=== PATIENT | male | born 1960 | race Caucasian/White ===

== ENCOUNTER 2017-11-07 16:30 | Emergency (ER) | payer SELFPAY ==
--- NOTE | 2017-11-07 16:43 | ER Document Report ---
HPI - HPI Patient complains to provider of: Fell off the back of a truck Onset: This afternoon - 3 PM Quality of pain: Sharp, Throbbing Pain Level: 4 Context: 57-year-old male fell off the back of a pickup truck about 4-1/2 feet onto his low back at 3 PM today. Has numbness down his right leg to the bottom of his right foot. No history of back pain or radiculopathy. No saddle anesthesia. Associated Symptoms: None Exacerbated by: Movement Relieved by: Denies Similar symptoms previously: No Recently seen / treated by doctor: No - ROS ROS below otherwise negative: Yes Systems Reviewed and Negative: Yes All other systems reviewed and negative Past Medical History - General Information source: Patient - Social History Smoking Status: Current Every Day Smoker Frequency of alcohol use: None Drug Abuse: None Lives with: Spouse/Significant other Family History: Reviewed & Not Pertinent - Medical History Medical History: Negative Surgical Hx: Negative Vertical Provider Document - CONSTITUTIONAL Agree With Documented VS: Yes Exam Limitations: No Limitations - INFECTION CONTROL TRAVEL OUTSIDE OF THE [place] IN LAST 30 DAYS: No - HEENT HEENT: Normocephalic - NECK Neck: Supple - RESPIRATORY Respiratory: Breath Sounds Normal, No Respiratory Distress - CARDIOVASCULAR Cardiovascular: Regular Rate, Regular Rhythm - MUSCULOSKELETAL/EXTREMETIES Musculoskeletal/Extremeties: MAEW, FROM, Tender - lumbat spine with radiation into right low back and into right leg, right SI joint - NEURO Level of Consciousness: Awake, Alert Motor/Sensory: No Motor Deficit, No Sensory Deficit Deep Tendon Reflexes: 2+ - Bilateral ankle and patellar - DERM Integumentary: Warm, Dry, No Rash Course - Re-evaluation Re-evalutation: 11/07/17 17:54 X-rays show some spondylitic changes, no fracture. The patient is able to walk. I will treat with prednisone because he says he has allergic reaction to ibuprofen but does okay with prednisone, muscle relaxers, and pain medication. He will follow-up if it gets worse. - Vital Signs Vital signs: Temp Pulse Resp BP Pulse Ox 98.4 F 90 16 191/97 H 95 11/07/17 16:37 11/07/17 16:37 11/07/17 16:37 11/07/17 16:37 11/07/17 16:37 Discharge - Discharge Clinical Impression: Low back pain after fall Condition: Good Disposition: HOME, SELF-CARE Instructions: Arthritis ([facility]), Low Back Pain ([facility]) Additional Instructions: warm compress Flexeril muscle relaxer Prednisone to reduce the inflammation percocet for pain to er if worse referral to orthopedics if persists Prescriptions: Cyclobenzaprine HCl [Flexeril 10 Mg Tablet] 10 mg PO TIDP PRN #20 tablet PRN Reason: Oxycodone HCl/Acetaminophen [Percocet 5-325 mg Tablet] 1 - 2 tab PO ASDIR PRN # 15 tablet PRN Reason: Prednisone [Deltasone 10 mg Tablet] 10 mg PO ASDIR PRN #21 tablet PRN Reason: Referrals: SAMRA CANADA MD [ACTIVE STAFF] - Follow up as needed
[2017-11-07] MEDS ORDERED: ONDANSETRON 4 MG TAB.RAPDIS PO ONE (16:46)
[2017-11-07] MEDS ORDERED: OXYCODONE-ACETAMINOPHEN 5-325 MG TABLET PO ONE (16:46)
--- NOTE | 2017-11-07 17:16 | RADIOLOGY REPORT (SQ) ---
EXAM DESCRIPTION: L SPINE WHOLE COMPLETED DATE/TIME: 11/07/2017 5:05 pm REASON FOR STUDY: fall off back of truck COMPARISON: None. NUMBER OF VIEWS: Five views including obliques. TECHNIQUE: AP, lateral, oblique, and sacral radiographic images acquired of the lumbar spine. LIMITATIONS: None. FINDINGS: MINERALIZATION: Normal. SEGMENTATION: Normal. No transitional anatomy. ALIGNMENT: Levoconvex lateral curvature centered at the L2/3 level noting a clot like marginal osteop hytes, consistent with sequela of degenerative change. VERTEBRAE: Maintained height. No fracture or worrisome bone lesion. DISCS: Multilevel spondylotic change with loss of intervertebral disc height predominantly at the L3/ 4 and L4/5 levels. Large marginal osteophytes are seen at several levels. POSTERIOR ELEMENTS: Pedicles and facets are intact. No pars defect or posterior arch defects. HARDWARE: None in the spine. PARASPINAL SOFT TISSUES: Normal. PELVIS: Intact as visualized. No fractures or worrisome bone lesions. SI joints intact. OTHER: No other significant finding. IMPRESSION: Multilevel spondylotic change. No evidence of acute osseous injury. TECHNICAL DOCUMENTATION: JOB ID: [id number]- All Rights Reserved Reading location - IP/workstation name: [email or web address]
[2017-11-07] MEDS ORDERED: PREDNISONE 20 MG TABLET PO ONE ×2 (17:53→17:55)
[2017-11-07 18:15] VITALS: BP 192/94
== END 2017-11-07 18:14 | disposition home or self-care (01) ==
LOC: ER 16:30
DX: M54.5 Low back pain (principal); R20.0 Anesthesia of skin; W17.89XA Other fall from one level to another, initial encounter; Y99.0 Civilian activity done for income or pay; F17.200 Nicotine dependence, unspecified, uncomplicated; Z88.6 Allergy status to analgesic agent
CPT/HCPCS: 99283; 72110; S0119; J7512

== ENCOUNTER 2017-11-11 13:54 | Emergency (ER) | payer SELFPAY ==
[2017-11-11] MEDS ORDERED: DIAZEPAM 5 MG TABLET PO ONE (14:36)
--- NOTE | 2017-11-11 14:40 | ER Document Report ---
ED Medical Screen (RME) - General Chief Complaint: Low Back Pain Stated Complaint: FALL BACK PAIN Time Seen by Provider: 11/11/17 14:34 Notes: RME DISCLOSURE I have seen this patient as part of a Rapid Medical Evaluation and, if applicable, placed any initially appropriate orders. The patient will be seen and fully evaluated, including a full history and physical exam, by a provider ( in Main ED or Fast Track) when a room becomes available. 57-year-old male here after a fall down several steps. States he tripped on a board causing him to fall. Pain of the lower back radiating down the right leg. Denies hitting his head or loss of consciousness. Did take a BC powder for pain just after falling down 1.5 hours ago. Denies numbness tingling weakness. TRAVEL OUTSIDE OF THE [place] IN LAST 30 DAYS: No - Related Data Allergies/Adverse Reactions: codeine Allergy (Verified 11/11/17 13:55) ibuprofen [From Motrin] Adverse Reaction (Verified 11/11/17 13:55) ketorolac [From Toradol] Adverse Reaction (Verified 11/11/17 13:55) Home Medications: no home meds per pt. Past Medical History - Social History Chew tobacco use (# tins/day): No Frequency of alcohol use: None Drug Abuse: None Renal/ Medical History: Denies: Hx Peritoneal Dialysis Physical Exam - Vital signs Vitals: Temp Pulse Resp BP Pulse Ox 98.0 F 81 22 H 201/111 H 99 11/11/17 14:09 11/11/17 14:09 11/11/17 14:09 11/11/17 14:09 11/11/17 14:09 Course - Vital Signs Vital signs: Temp Pulse Resp BP Pulse Ox 98.0 F 81 22 H 197/104 H 99 11/11/17 14:09 11/11/17 14:09 11/11/17 14:09 11/11/17 14:12 11/11/17 14:09
--- NOTE | 2017-11-11 15:46 | RADIOLOGY REPORT (SQ) ---
EXAM DESCRIPTION: L SPINE WHOLE COMPLETED DATE/TIME: 11/11/2017 3:25 pm REASON FOR STUDY: s/p fall COMPARISON: 11/07/2017 NUMBER OF VIEWS: Five views including obliques. TECHNIQUE: AP, lateral, oblique, and sacral radiographic images acquired of the lumbar spine. LIMITATIONS: None. FINDINGS: MINERALIZATION: Normal. SEGMENTATION: Normal. No transitional anatomy. ALIGNMENT: Normal. VERTEBRAE: Maintained height. No fracture or worrisome bone lesion. DISCS: Multilevel disc space narrowing with osteophytes. POSTERIOR ELEMENTS: Pedicles and facets are intact. No pars defect or posterior arch defects. Facet arthropathy is present. HARDWARE: None in the spine. PARASPINAL SOFT TISSUES: Normal. PELVIS: Intact as visualized. No fractures or worrisome bone lesions. SI joints intact. OTHER: No other significant finding. IMPRESSION: No evidence of acute osseous injury. Multilevel spondylotic change. TECHNICAL DOCUMENTATION: JOB ID: [id number] [employer]- All Rights Reserved Reading location - IP/workstation name: [email or web address]
--- NOTE | 2017-11-11 15:47 | RADIOLOGY REPORT (SQ) ---
EXAM DESCRIPTION: PELVIS AP COMPLETED DATE/TIME: 11/11/2017 3:25 pm REASON FOR STUDY: s/p fall COMPARISON: None. NUMBER OF VIEWS: One view TECHNIQUE: AP Pelvis LIMITATIONS: None. FINDINGS: MINERALIZATION: Normal. HIPS: No acute fracture or dislocation. No worrisome bone lesions. PELVIS AND SACRUM: No acute fracture or dislocation. No worrisome bone lesions. PUBIS AND ISCHIUM: No acute fracture. LOWER LUMBAR SPINE: Spondylotic change. SOFT TISSUES: No findings. OTHER: No other significant finding. IMPRESSION: NEGATIVE STUDY OF THE PELVIS. TECHNICAL DOCUMENTATION: JOB ID: [id number] [employer]- All Rights Reserved Reading location - IP/workstation name: [email or web address]
--- NOTE | 2017-11-11 15:47 | RADIOLOGY REPORT (SQ) ---
EXAM DESCRIPTION: SACRUM AND COCCYX COMPLETED DATE/TIME: 11/11/2017 3:25 pm REASON FOR STUDY: s/p fall COMPARISON: None. NUMBER OF VIEWS: Three views. TECHNIQUE: AP, lateral, and tilt views of the sacrum and coccyx. LIMITATIONS: None. FINDINGS: MINERALIZATION: Normal. BONES: No acute fracture or dislocation. No worrisome bone lesions. SOFT TISSUES: No soft tissue swelling. No foreign body. OTHER: No other significant finding. IMPRESSION: NEGATIVE STUDY OF THE SACRUM AND COCCYX. TECHNICAL DOCUMENTATION: JOB ID: [id number] [employer]- All Rights Reserved Reading location - IP/workstation name: [email or web address]
[2017-11-11] MEDS ORDERED: OXYCODONE-ACETAMINOPHEN 5-325 MG TABLET PO ONE (16:14)
--- NOTE | 2017-11-11 17:38 | ER Document Report ---
ED General - General Chief Complaint: Low Back Pain Stated Complaint: FALL BACK PAIN Time Seen by Provider: 11/11/17 14:34 Mode of Arrival: Ambulatory Information source: Patient Notes: This is a 57-year-old man with low back pain who was coming down the stairs and slipped on a nail and hit his buttocks on the steps exacerbating his pain. Patient presents to the emergency room with lumbar pain radiating down his right leg. TRAVEL OUTSIDE OF THE [place] IN LAST 30 DAYS: No - HPI Onset: Just prior to arrival Onset/Duration: Sudden Quality of pain: Dull Severity: Moderate Pain Level: 3 Associated symptoms: denies: Chest pain, Fever, Shortness of breath Exacerbated by: Movement Relieved by: Remaining still Similar symptoms previously: Yes Recently seen / treated by doctor: Yes - Related Data Allergies/Adverse Reactions: codeine Allergy (Verified 11/11/17 13:55) ibuprofen [From Motrin] Adverse Reaction (Verified 11/11/17 13:55) ketorolac [From Toradol] Adverse Reaction (Verified 11/11/17 13:55) Home Medications: no home meds per pt. Past Medical History - General Information source: Patient - Social History Smoking Status: Current Every Day Smoker Cigarette use (# per day): Yes - 1 pack per day Chew tobacco use (# tins/day): No Frequency of alcohol use: None Drug Abuse: None Lives with: Spouse/Significant other Family History: Reviewed & Not Pertinent Patient has suicidal ideation: No Patient has homicidal ideation: No - Past Medical History Cardiac Medical History: Reports: Hx Hypertension Renal/ Medical History: Denies: Hx Peritoneal Dialysis Surgical Hx: Negative Review of Systems - Review of Systems Constitutional: denies: Chills, Fever EENT: No symptoms reported Cardiovascular: No symptoms reported Respiratory: No symptoms reported Gastrointestinal: No symptoms reported Genitourinary: No symptoms reported Male Genitourinary: No symptoms reported Musculoskeletal: See HPI Skin: No symptoms reported Hematologic/Lymphatic: No symptoms reported Neurological/Psychological: No symptoms reported Physical Exam - Vital signs Vitals: Temp Pulse Resp BP Pulse Ox 98.0 F 81 22 H 201/111 H 99 11/11/17 14:09 11/11/17 14:09 11/11/17 14:09 11/11/17 14:09 11/11/17 14:09 Notes: Physical exam: GENERAL: The 7-year-old man, alert and oriented 3, no acute distress HEAD: Atraumatic, normocephalic. EYES: Pupils equal round and reactive to light, extraocular movements intact, sclera anicteric, conjunctiva are normal. ENT: TMs normal, nares patent, oropharynx clear without exudates. Moist mucous membranes. NECK: Normal range of motion, supple without obvious mass or JVD. LUNGS: Breath sounds clear to auscultation bilaterally and equal. No wheezes rales or rhonchi. HEART: Regular rate and rhythm without murmurs, rubs or gallops. ABDOMEN: Soft, normoactive bowel sounds. No tenderness to palpation. No guarding, no rebound. No masses appreciated. Back: Thoracic spine nontender, positive tenderness in the lumbar spine. There is no obvious crepitus. EXTREMITIES: Normal range of motion, no pitting or edema. No clubbing or cyanosis. NEUROLOGICAL: Cranial nerves II through XII grossly intact. Normal speech, moving all extremities. Noted to the lower extremities is good. The patient does have positive straight leg raising at 30 on the right. Distal pulses are 2+. He does have good sensation to the lower extremity. PSYCH: Normal mood, normal affect. SKIN: Warm, Dry, normal turgor, no rashes or lesions noted. Course - Re-evaluation Re-evalutation: Patient refusing MRI. Patient refusing blood work 11/11/17 17:34 I have had a long conversation with the patient. I think Mr. Morataya may have some disc disease and I recommended getting an MRI. I offered to arrange for that study today but the patient is adamant not to have the MRI because he is worried about cost. He does have an appointment with a back surgeon on Thursday. Additionally, his blood pressure is quite elevated and I wanted to get some blood work to evaluate his baseline BUN and creatinine. However, for the same reason as above, he does not want any blood work. While I think some of the blood pressure can be due to pain, I think it is clear he has high blood pressure and requires treatment. I will start him on a blood pressure medicine as well. I will refer him to a [facility]. 11/11/17 18:57 - Vital Signs Vital signs: Temp Pulse Resp BP Pulse Ox 97.9 F 66 22 H 191/103 H 95 04/04/18 17:44 11/11/17 17:44 11/11/17 14:09 11/11/17 17:44 11/11/17 17:44 - Diagnostic Test Radiology reviewed: Image reviewed, Reports reviewed - X-rays of the spine and pelvis show no acute bony lesions Discharge - Discharge Clinical Impression: Sciatica right, Hypertension Condition: Stable Disposition: HOME, SELF-CARE Instructions: Low Back Pain ([facility]), Oral Narcotic Medication ([facility]), Sciatica ( [facility]) Additional Instructions: Thank you for choosing [facility] for your care. The examination and treatment you have received in the Emergency Department today has been rendered on an emergency basis only and is not intended to be a substitute for complete medical care. You should contact your doctor as it is important that she/he examine you for any new or remaining problems. If given a copy of any lab tests or radiology reports, please bring them with you when you see your physician. If your problem worsens or new symptoms appear and you are unable to arrange prompt follow-up care, return to the Emergency Department. Specific signs to look out for: Any loss of bowel or bladder function, numbness to the inner thighs or around the scrotum, weakness to the lower extremities, or any concerns or getting worse. Any other instructions: Take the pain medicine as prescribed. Take the Neurontin which is also for pain. Follow-up with your back surgeon on Thursday as planned. A copy of today's x- rays as well as x-ray reports with you when you go. Take the blood pressure medicine as prescribed. Continue with the steroids as previously prescribed. Alternate heat or ice packs to the lower back to see which helps. It is important to follow-up with a primary care doctor for the blood pressure: I gave the number of the [facility] which is a free clinic below. If you don't have insurance: follow-up at the [facility] which is a free clinic. [address], [place] [address] The pain medicine you're taking prescribed as a narcotic. There are several important things you should know about this medicine: 1. This medicine contains Tylenol: It is important that you do not take Tylenol (or acetaminophen) while on this medicine. Tylenol is metabolized by the liver and taking too much Tylenol (acetaminophen) can lay to liver damage and even liver failure. 2. Taking narcotics for too long can lead to physical and mental dependence. Take this medicine only if really needed and in the lowest quantity to achieve pain relief. 3. Do not drink alcohol while on this medicine. Alcohol interacts with narcotics and the combination can be dangerous. 4. Do not drive or operate machinery while on this medicine. 5. Narcotics do cause constipation, so drink plenty of fluids and daily stool softeners. Prescriptions: Gabapentin 100 mg PO Q8HP PRN #30 capsule PRN Reason: Amlodipine Besylate [Norvasc 5 mg Tablet] 5 mg PO DAILY #30 tablet Oxycodone HCl/Acetaminophen [Percocet 5-325 mg Tablet] 1 tab PO ASDIR PRN #25 tab PRN Reason:
[2017-11-11 17:44] VITALS: BP 191/103
== END 2017-11-11 18:04 | disposition home or self-care (01) ==
LOC: ER 13:54
DX: M54.31 Sciatica, right side (principal); I10 Essential (primary) hypertension; W10.9XXA Fall (on) (from) unspecified stairs and steps, initial encounter; F17.210 Nicotine dependence, cigarettes, uncomplicated; Z88.6 Allergy status to analgesic agent
CPT/HCPCS: 72110; 72170; 72220; 99283

== ENCOUNTER 2017-11-16 15:35 | Emergency (ER) | payer SELFPAY ==
--- NOTE | 2017-11-16 17:05 | ER Document Report ---
ED General - General Chief Complaint: Back Injury Stated Complaint: BACK INJURY Time Seen by Provider: 11/16/17 17:03 Mode of Arrival: Wheelchair Information source: Patient Notes: Patient is a 57-year-old male presents status post fall that occurred today around 130. He states he was working on a steel boat slipped in the rain and fell landing on his back. He states he has fallen 2 other times in the past 10 days and has been seen both times for the fall here. He states the pain in his back is progressively gotten worse with each fall and now is endorsing a 2 day history of bladder incontinence, right leg paresthesias, numbness and right foot and saddle paresthesias. He denies any bowel incontinence, unilateral weakness, fever, chills, neck pain/stiffness. He states that he saw last time and discussed an MRI but did not want to stay at that time. TRAVEL OUTSIDE OF THE [place] IN LAST 30 DAYS: No - Related Data Allergies/Adverse Reactions: codeine Allergy (Verified 11/16/17 15:42) ibuprofen [From Motrin] Adverse Reaction (Verified 11/16/17 15:42) ketorolac [From Toradol] Adverse Reaction (Verified 11/16/17 15:42) Past Medical History - General Information source: Patient - Social History Smoking Status: Current Every Day Smoker Family History: Reviewed & Not Pertinent - Past Medical History Cardiac Medical History: Reports: Hx Hypertension Renal/ Medical History: Denies: Hx Peritoneal Dialysis Review of Systems - Review of Systems Constitutional: See HPI EENT: No symptoms reported Cardiovascular: No symptoms reported Respiratory: No symptoms reported Gastrointestinal: No symptoms reported Genitourinary: No symptoms reported Male Genitourinary: No symptoms reported Musculoskeletal: See HPI Skin: No symptoms reported Hematologic/Lymphatic: No symptoms reported Neurological/Psychological: See HPI Physical Exam - Vital signs Vitals: Temp Pulse Resp BP Pulse Ox 98.1 F 73 16 163/106 H 99 11/16/17 16:08 11/16/17 16:08 11/16/17 16:08 11/16/17 16:08 11/16/17 16:08 - Notes Notes: PHYSICAL EXAM: CONSTITUTIONAL: Alert and oriented, well-appearing and in no acute distress. HENT: Normocephalic, atraumatic. Trachea midline. Uvula midline. Moist mucous membranes. EYES: Pupils equal round and reactive to light, EOM intact. Sclera anicteric, conjunctiva are normal. No entrapment. NECK: supple without lymphadenopathy. No midline tenderness or paraspinous muscle spasms. No step-offs or deformities. ROM intact. Negative Kernig's and negative Brudzinski's. HEART: Regular rate and rhythm without murmurs. LUNGS: CTAB and equal. No wheezes, rales or rhonchi. GI: Normactive bowel sounds. Abdomen is soft, nontender, non-distended. No organomegaly. no CVAT. No rebound or guarding. BACK: FROM to passive, active FROM limited 2/2 pain. Strength 4+/5 bilaterally in lower extremities. No vertebral point tenderness, step-offs, or deformities. No other bony tenderness, erythema, swelling or ecchymosis. No paraspinous muscle spasms. SLR negative b/l. DTRs 2+. TTP to right lumbar musculature and to inner right thigh. Sensation intact to touch EXTREMITIES: no bony tenderness, erythema, edema, ecchymosis or deformity. Normal range of motion, no pitting edema. No cyanosis. Cap Refill <3 seconds. NEURO: Cranial nerves grossly intact. Normal sensory/motor exams. Sensation intact to touch. DTR 2+. PSYCH: Normal mood, normal affect. SKIN: Warm and dry. Normal turgor. No rashes or lesions noted. Course - Re-evaluation Re-evalutation: 11/16/17 17:05 Patient seen and examined. Well-hydrated, well-appearing, vital signs are stable. He is hypertensive and has history of high blood pressure but is not on any medications. Suspect the elevation today is due to his acute pain. He has had 2 previous lumbar x-rays done since 11/07/2017 all which were normal. Because he is now reporting bladder incontinence, saddle paresthesias and radiating pain down his right leg, I feel that MRI is warranted. Given PO pain medication here. 11/16/17 19:30 Patient returned from MRI requesting additional pain medication. Reports swelling with codeine, but has had oxycodone without difficulty or reaction. Reviewed imaging and reports which show no central cord compression or stenosis , shows non-critical foraminal narrowing. Discussed results with patient. Will give pain medication/steroids/muscle relaxers. Advised that he will need outpatient referral to neurosurgery for further evaluation and management. I have consulted with the supervisory physician per [facility] guidelines who agrees with management and plan. At this time, will discharge with return precautions and follow-up recommendations. Verbal discharge instructions given at the bedside and opportunity for questions given. Medication warnings reviewed. Patient is in agreement with this plan and has verbalized understanding of return precautions and the need for primary care follow-up in the next 24-72 hours. - Vital Signs Vital signs: Temp Pulse Resp BP Pulse Ox 98.1 F 73 16 163/106 H 99 11/16/17 16:08 11/16/17 16:08 11/16/17 16:08 11/16/17 16:08 11/16/17 16:08 - Diagnostic Test Radiology reviewed: Image reviewed, Reports reviewed Discharge - Discharge Clinical Impression: Foraminal stenosis of lumbar region Fall, accidental Qualifiers: Encounter type: initial encounter Qualified Code(s): W19.XXXA - Unspecified fall, initial encounter Spondylosis Qualifiers: Spinal region: lumbar Spinal osteoarthritis complication: with radiculopathy Qualified Code(s): M47.26 - Other spondylosis with radiculopathy, lumbar region Condition: Stable Disposition: HOME, SELF-CARE Additional Instructions: Referral to Neurology: [facility] - [facility], Gastroenterology, Pulmonology, Podiatry, Rheumatology [address] [place] [id number] Appointment line: [phone] Prescription Refill Line: [phone] LOW BACK PAIN: Three out of every four people will have an episode of disabling back pain during their lifetime. Most commonly the pain is due to straining of the muscles and ligaments in the low back. Usual treatment includes: (1) Rest on a firm surface. Avoid lying on your stomach. (2) Ice pack the painful area. After a few days, gentle heat may be used intermittently to relax the area, or ice packs can be continued. (3) Medication may be needed -- muscle relaxers and antiinflammatory medicines are commonly used. (4) As the back improves, exercises are prescribed to strengthen the back and abdominal muscles. Your doctor will advise you on the proper care for your back at each stage in your recovery. You may be better in a few days -- or healing may take several weeks. If new symptoms of a "herniated disc" (radiation of pain, numbness, or tingling down the back of the leg or weakness in the leg) occur, you should be re-examined. Further testing may be necessary. ORAL NARCOTIC MEDICATION: You have been given a prescription for pain control. This medication is a narcotic. It's best taken with food, as nausea can result if taken on an empty stomach. Don't operate machinery or drive within six hours of taking this medication. Do not combine this medicine with alcohol, or with any medication which can cause sedation (such as cold tablets or sleeping pills) unless you get permission from the physician. Narcotics tend to cause constipation. If possible, drink plenty of fluids and eat a diet high in fiber and fruits. Please be aware that prescription narcotics also have the potential for abuse. People become addicted to these medications because of the general sense of wellbeing that they induce. This feeling along with a significant reduction in tension, anxiety, and aggression provides a stimulating seductive quality to these drugs. Once your pain is under control, we encourage you to discard your unused narcotics. MUSCLE RELAXERS: Muscle relaxing medications are usually prescribed for acute muscle spasm or injury to the neck and back. They are often combined with antiinflammatory pain medication for increased relief. You may stop the muscle relaxer when the pain and stiffness have improved. Start the medication again if spasms recur. Muscle relaxers may cause drowsiness, especially with the first dose. Do not operate machinery or drive while under the effects of the medication. Most muscle relaxers last up to 24 hours. Do not combine the medication with alcohol. ICE PACKS: Apply ice packs frequently against the painful area. Many different schedules are recommended, such as "20 minutes on, 20 minutes off" or "one hour ice, two hours rest." If you need to work, you may need to go longer between ice treatments. You should plan to have the area ice packed AT LEAST one fourth of the time. The ice should be applied over the wrap, tape, or splint, or over a layer of cloth -- not directly against the skin. Some ice bags have a built-in cloth and can be put directly on the skin. WARM PACKS: After approximately two days, apply gentle heat (such as a heating pad or hot water bottle) for about 20 to 30 minutes about every two hours -- at least four times daily. Warmth and elevation will help you make a more rapid recovery , and will ease the pain considerably. Do not use HOT heat, and never apply heat for longer than 30 minutes. The continuous heat can invisibly damage skin and muscles -- even when no burn is seen on the surface. Damaged muscles can make you MORE sore. FOLLOW-UP CARE: If you have been referred to a physician for follow-up care, call the physician s office for an appointment as you were instructed or within the next two days. If you experience worsening or a significant change in your symptoms, notify the physician immediately or return to the Emergency Department at any time for re-evaluation. Prescriptions: Oxycodone HCl/Acetaminophen [Percocet 5-325 mg Tablet] 1 tab PO Q6HP PRN #15 tablet PRN Reason: Cyclobenzaprine HCl [Flexeril 10 mg Tablet] 10 mg PO TIDP PRN #15 tab PRN Reason: Prednisone [Deltasone 10 mg Tablet] 10 mg PO ASDIR PRN #21 tablet PRN Reason: Forms: Elevated Blood Pressure Referrals: NEUROLOGY [Provider Group] - Follow up tomorrow Neurosurgery [Provider Group] - Follow up tomorrow
[2017-11-16] MEDS ORDERED: OXYCODONE HCL IR 5 MG TABLET PO ONE ×2 (17:21→19:13)
[2017-11-16] MEDS ORDERED: LORAZEPAM 0.5 MG TABLET PO ONE (17:42)
--- NOTE | 2017-11-16 19:17 | RADIOLOGY REPORT (SQ) ---
EXAM DESCRIPTION: MRI LUMBAR SPINE WITHOUT COMPLETED DATE/TIME: 11/16/2017 7:01 pm REASON FOR STUDY: low back pain, urinary incontinence, paresthesias COMPARISON: 11/11/2017 radiographs TECHNIQUE: Sagittal and Axial imaging includes T1, T2, STIR and gradient echo sequences. Coronal T2/ HASTE imaging. LIMITATIONS: Motion artifact, mild-moderate. FINDINGS: VISUALIZED UPPER ABDOMEN: Left kidney large relative to right. Possible partial duplicati on. SEGMENTATION: No transitional anatomy. The lowest well-developed disc space is labeled L5-S1. ALIGNMENT: Mild convex left scoliotic curve. VERTEBRAE: Intact. BONE MARROW: Minimal endplate marrow edema at L4-5 related to degenerative disc disease here. Mild S chmorl's nodes at several other levels, nonacute. Chronic appearing fatty endplate changes otherwise . DISC SIGNAL: Diminished signal and mildly diminished height throughout. POSTERIOR ELEMENTS: No abnormal signal. Mild degenerative overgrowth in the lower facets. No gross pars defect. HARDWARE: None in the spine. CORD AND CONUS: Normal in size and signal intensity. Conus at the appropriate level. SOFT TISSUES: No aortic aneurysm seen. No bulky retroperitoneal adenopathy or mass. No paraspinal mas s or fluid. L1-L2: Small right paracentral protrusion. No high-grade central or foraminal narrowing. L2-L3: Mild facet arthropathy without overt stenosis. L3-L4: Mild disc and facet disease without central stenosis or high-grade foraminal narrowing. L4-L5: Mild disc and facet disease with slight central narrowing. Suspect up to moderate left forami nal stenosis. L5-S1: Exuberant facet overgrowth without central stenosis detected. Bilateral foraminal narrowing i s grossly at least moderate. LOWER THORACIC: Incompletely imaged. No stenosis seen. SACRUM: Visualized upper sacrum intact. OTHER: No other significant findings. IMPRESSION: 1. No cord compression or significant central stenosis. Spondylosis with relatively non critical foraminal narrowing as outlined above. Limiting motion. TECHNICAL DOCUMENTATION: JOB ID: [id number]- All Rights Reserved Reading location - IP/workstation name: [email or web address]
[2017-11-16 19:50] VITALS: BP 138/99
== END 2017-11-16 19:50 | disposition home or self-care (01) ==
LOC: ER 15:35
DX: M54.9 Dorsalgia, unspecified (principal); W01.0XXA Fall on same level from slipping, tripping and stumbling without subsequent striking against object, initial encounter; Y93.89 Activity, other specified; Y92.814 Boat as the place of occurrence of the external cause; M48.061 Spinal stenosis, lumbar region without neurogenic claudication; M47.26 Other spondylosis with radiculopathy, lumbar region; R32 Unspecified urinary incontinence; I10 Essential (primary) hypertension; F17.200 Nicotine dependence, unspecified, uncomplicated; Z88.5 Allergy status to narcotic agent
CPT/HCPCS: 72148; 99284

== ENCOUNTER 2017-11-29 17:40 | Emergency (ER) | payer SELFPAY ==
[2017-11-29 18:07] VITALS: BP 161/93
[2017-11-29] MEDS ORDERED: CYCLOBENZAPRINE HCL 10 MG TABLET PO ONE (19:28)
[2017-11-29] MEDS ORDERED: ACETAMINOPHEN 325 MG TABLET PO ONE (19:28)
--- NOTE | 2017-11-29 19:33 | ER Document Report ---
ED Medical Screen (RME) - General Chief Complaint: Back Pain Stated Complaint: BACK INJURY Time Seen by Provider: 11/29/17 19:18 Notes: RME DISCLOSURE I have seen this patient as part of a Rapid Medical Evaluation and, if applicable, placed any initially appropriate orders. The patient will be seen and fully evaluated, including a full history and physical exam, by a provider ( in Main ED or Fast Track) when a room becomes available. 57-year-old male here with complaints of back pain that started prior to arrival after the patient fell off of a ladder at approximately 5 feet high. He states that he was cutting branches with a pole saw and then when he maneuvered the pole saw, he lost his balance and fell onto the grass. No loss of consciousness. Denies numbness tingling incontinence retention. This is now the patient's fourth fall in 1 month. He denies any other symptoms. TRAVEL OUTSIDE OF THE [place] IN LAST 30 DAYS: No - Related Data Allergies/Adverse Reactions: codeine Allergy (Verified 11/29/17 17:44) ibuprofen [From Motrin] Adverse Reaction (Verified 11/29/17 17:44) ketorolac [From Toradol] Adverse Reaction (Verified 11/29/17 17:44) Past Medical History - Social History Chew tobacco use (# tins/day): No Frequency of alcohol use: None Drug Abuse: None - Past Medical History Cardiac Medical History: Reports: Hx Hypertension Renal/ Medical History: Denies: Hx Peritoneal Dialysis Physical Exam - Vital signs Vitals: Temp Pulse Resp BP Pulse Ox 98.3 F 64 20 161/93 H 95 11/29/17 18:06 11/29/17 18:06 11/29/17 18:06 11/29/17 18:06 11/29/17 18:06 Course - Vital Signs Vital signs: Temp Pulse Resp BP Pulse Ox 98.3 F 64 20 161/93 H 95 11/29/17 18:06 11/29/17 18:06 11/29/17 18:06 11/29/17 18:06 11/29/17 18:06
--- NOTE | 2017-11-29 20:00 | ER Document Report ---
ED Neck/Back Problem - General Mode of Arrival: Ambulatory Information source: Patient TRAVEL OUTSIDE OF THE [place] IN LAST 30 DAYS: No - General Chief Complaint: Back Pain Stated Complaint: BACK INJURY Time Seen by Provider: 11/29/17 19:18 Notes: Patient is a 57 year old male that presents to the emergency department today with complaints of back pain. Patient states that he fell off of a 5 foot ladder when cutting down a tree limb. Patient states he landed on grass. Patient states the pain is on the right side of his back and posterior ribs as this is the side he landed on. Patient denies any saddle anesthesia or bowel or bladder incontinence. (MARLYS SHERMAN) - Related Data Allergies/Adverse Reactions: codeine Allergy (Verified 11/29/17 17:44) ibuprofen [From Motrin] Adverse Reaction (Verified 11/29/17 17:44) ketorolac [From Toradol] Adverse Reaction (Verified 11/29/17 17:44) Past Medical History - General Information source: Patient - Social History Smoking Status: Current Every Day Smoker Cigarette use (# per day): Yes Chew tobacco use (# tins/day): No Frequency of alcohol use: None Drug Abuse: None Lives with: Family Family History: Reviewed & Not Pertinent Patient has suicidal ideation: No Patient has homicidal ideation: No - Past Medical History Cardiac Medical History: Reports: Hx Hypertension Renal/ Medical History: Denies: Hx Peritoneal Dialysis Surgical Hx: Negative Review of Systems - Review of Systems Constitutional: No symptoms reported EENT: No symptoms reported Cardiovascular: No symptoms reported Respiratory: No symptoms reported Gastrointestinal: No symptoms reported Genitourinary: No symptoms reported Male Genitourinary: No symptoms reported Musculoskeletal: See HPI, Back pain Skin: No symptoms reported Hematologic/Lymphatic: No symptoms reported Neurological/Psychological: No symptoms reported -: Yes All other systems reviewed and negative Physical Exam - Vital signs Vitals: Temp Pulse Resp BP Pulse Ox 98.3 F 64 20 161/93 H 95 11/29/17 18:06 11/29/17 18:06 11/29/17 18:06 11/29/17 18:06 11/29/17 18:06 - Notes Notes: Physical Exam: General: Alert, appears well. HEENT: Normocephalic. Atraumatic. PERRL. Extraocular movements intact. Oropharynx clear. Neck: Supple. Non-tender. Respiratory: No respiratory distress. Clear and equal breath sounds bilaterally. Cardiovascular: Regular rate and rhythm. Abdominal: Normal Inspection. Non-tender. No distension. Normal Bowel Sounds. Back: Lower lumbar and mid thoracic tenderness with palpation. No deformity or step off. Extremities: Moves all four extremities. Upper extremities: Normal inspection. Normal ROM. Lower extremities: Normal inspection. No edema. Normal ROM. Neurological: Normal cognition. AAOx4. Normal speech. Psychological: Normal affect. Normal Mood. Skin: Warm. Dry. Normal color. (MARLYS SHERMAN) Course - Re-evaluation Re-evalutation: 11/29/17 21:00 Patient well-appearing able to get out of the gurney on his own and ambulate. No radiographic signs of fracture dislocation. Patient will be discharged with muscular skeletal pain from falling off ladder approximately 5 feet. Return precautions provided. Of note, patient did not hit his head he is not taking any blood thinners. (DAVIDA LANGLEY) - Vital Signs Vital signs: Temp Pulse Resp BP Pulse Ox 98.3 F 64 20 161/93 H 95 11/29/17 18:06 11/29/17 18:06 11/29/17 18:06 11/29/17 18:06 11/29/17 18:06 Discharge - Discharge Clinical Impression: Muscular skeletal pain Fall from ladder Qualifiers: Encounter type: initial encounter Qualified Code(s): W11.XXXA - Fall on and from ladder, initial encounter Condition: Good Disposition: HOME, SELF-CARE Instructions: Low Back Pain ([facility]), Muscle Strain ([facility]), Warm Packs ([facility]) Prescriptions: Cyclobenzaprine HCl [Flexeril 10 mg Tablet] 10 mg PO TID PRN #20 tablet PRN Reason: Scribe Attestation: 12/07/17 07:56 I personally performed the services described in the documentation, reviewed and edited the documentation which was dictated to the scribe in my presence, and it accurately records my words and actions. (DAVIDA LANGLEY) Scribe Documentation - Scribe Written by Scribe:: Daniel Tran, 11/29/2017 acting as scribe for :: Terry
[2017-11-29] MEDS ORDERED: OXYCODONE-ACETAMINOPHEN 5-325 MG TABLET PO ONE (20:07)
--- NOTE | 2017-11-29 20:33 | RADIOLOGY REPORT (SQ) ---
EXAM DESCRIPTION: L SPINE WHOLE COMPLETED DATE/TIME: 11/29/2017 8:07 pm REASON FOR STUDY: fall off ladder COMPARISON: None. NUMBER OF VIEWS: Five views including obliques. TECHNIQUE: AP, lateral, oblique, and sacral radiographic images acquired of the lumbar spine. LIMITATIONS: None. FINDINGS: MINERALIZATION: Normal. SEGMENTATION: Normal. No transitional anatomy. ALIGNMENT: Normal. VERTEBRAE: Maintained height. No fracture or worrisome bone lesion. DISCS: Multilevel disc space narrowing with osteophytes. POSTERIOR ELEMENTS: Pedicles and facets are intact. No pars defect or posterior arch defects. Facet arthropathy is present. HARDWARE: None in the spine. PARASPINAL SOFT TISSUES: Normal. PELVIS: Intact as visualized. No fractures or worrisome bone lesions. SI joints intact. OTHER: No other significant finding. IMPRESSION: SPONDYLOSIS WITHOUT BONE LESION OR FRACTURE. TECHNICAL DOCUMENTATION: JOB ID: [id number] [place]-72 2010 [employer]- All Rights Reserved Reading location - IP/workstation name: [email or web address]
--- NOTE | 2017-11-29 20:33 | RADIOLOGY REPORT (SQ) ---
EXAM DESCRIPTION: T SPINE AP/LAT COMPLETED DATE/TIME: 11/29/2017 8:07 pm REASON FOR STUDY: fall off ladder COMPARISON: None. NUMBER OF VIEWS: Two views. TECHNIQUE: AP and lateral radiographic images acquired of the thoracic spine. LIMITATIONS: None. FINDINGS: MINERALIZATION: Normal. ALIGNMENT: Normal. No scoliosis. VERTEBRAE: No fracture or bone lesion. Maintained height, normal segmentation. DISCS: Multilevel disc space narrowing with osteophytes. HARDWARE: None in the spine. MEDIASTINUM AND SOFT TISSUES: Normal heart size and aortic contour. No soft tissue abnormality. VISUALIZED LUNG SAENZ: Clear. OTHER: No other significant finding. IMPRESSION: SPONDYLOSIS WITHOUT BONE LESION OR FRACTURE. TECHNICAL DOCUMENTATION: JOB ID: [id number] [place]-72 2010 [employer]- All Rights Reserved Reading location - IP/workstation name: [email or web address]
--- NOTE | 2017-11-29 20:39 | RADIOLOGY REPORT (SQ) ---
EXAM DESCRIPTION: CHEST 2 VIEWS COMPLETED DATE/TIME: 11/29/2017 8:29 pm REASON FOR STUDY: R lateral chest pain, fall COMPARISON: None. EXAM PARAMETERS: NUMBER OF VIEWS: two views TECHNIQUE: Digital Frontal and Lateral radiographic views of the chest acquired. RADIATION DOSE: NA LIMITATIONS: none FINDINGS: LUNGS AND PLEURA: No opacities, masses or pneumothorax. No pleural effusion. MEDIASTINUM AND HILAR STRUCTURES: No masses or contour abnormalities. HEART AND VASCULAR STRUCTURES: Heart normal size. No evidence for failure. BONES: No acute findings. Old healed left rib fractures. HARDWARE: None in the chest. OTHER: No other significant finding. IMPRESSION: NO ACUTE RADIOGRAPHIC FINDING IN THE CHEST. TECHNICAL DOCUMENTATION: JOB ID: [id number] [place]-72 2010 [employer]- All Rights Reserved Reading location - IP/workstation name: [email or web address]
== END 2017-11-29 21:56 | disposition home or self-care (01) ==
LOC: ER 17:40
DX: M54.9 Dorsalgia, unspecified (principal); R07.81 Pleurodynia; W11.XXXA Fall on and from ladder, initial encounter; Y93.H9 Activity, other involving exterior property and land maintenance, building and construction; F17.210 Nicotine dependence, cigarettes, uncomplicated; I10 Essential (primary) hypertension; Z88.5 Allergy status to narcotic agent; Z88.6 Allergy status to analgesic agent
CPT/HCPCS: 71046; 72070; 72110; 99283

== ENCOUNTER 2017-11-30 12:03 | Emergency (ER) | payer SELFPAY ==
--- NOTE | 2017-11-30 13:35 | ER Document Report ---
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 No saddle anesthesia, no radiculopathy, no fever or chills, no IV drug use. Associated Symptoms: None Exacerbated by: Movement Relieved by: Denies Similar symptoms previously: Yes Recently seen / treated by doctor: No - ROS ROS below otherwise negative: Yes Systems Reviewed and Negative: Yes All other systems reviewed and negative Past Medical History - General Information source: Patient - Social History Smoking Status: Current Every Day Smoker Frequency of alcohol use: None Drug Abuse: None Lives with: Family Family History: Reviewed & Not Pertinent Patient has suicidal ideation: No Patient has homicidal ideation: No - Past Medical History Cardiac Medical History: Reports: Hx Hypertension - no meds Renal/ Medical History: Denies: Hx Peritoneal Dialysis Surgical Hx: Negative Vertical Provider Document - CONSTITUTIONAL Agree With Documented VS: Yes Exam Limitations: No Limitations General Appearance: Mild Distress - INFECTION CONTROL TRAVEL OUTSIDE OF THE [place] IN LAST 30 DAYS: No - HEENT HEENT: Normocephalic - NECK Neck: Supple - RESPIRATORY Respiratory: Breath Sounds Normal, No Respiratory Distress - CARDIOVASCULAR Cardiovascular: Regular Rate, Regular Rhythm - MUSCULOSKELETAL/EXTREMETIES Musculoskeletal/Extremeties: MAEW, Tender - right lumbar paraspinal muscles - NEURO Level of Consciousness: Awake, Alert Motor/Sensory: No Motor Deficit, No Sensory Deficit Deep Tendon Reflexes: 2+ - john ankle and patellar - DERM Integumentary: Warm, Dry, No Rash Course - Re-evaluation Re-evalutation: 11/30/17 14:16 Conversation with the patient and his partner that he has had for 10 years concerning treatment of this back pain. He does not want a shot he is scared of shots. I explained that I can give him 1 dose of opiates for the back pain now but no prescription. He has a follow-up appointment in [place] on Thursday with a back specialist. I am putting his MRI that he had on November 16 in all of his x-rays on CD. He states he cannot take tramadol Toradol or Motrin. He wants to take home prescription for opiates. - Vital Signs Vital signs: Temp Pulse Resp BP Pulse Ox 97.8 F 64 20 179/92 H 94 11/30/17 12:14 11/30/17 12:14 11/30/17 12:14 11/30/17 12:14 11/30/17 12:14 Discharge - Discharge Clinical Impression: Exacerbation of low back pain, Right lumbar back strain Condition: Good Disposition: HOME, SELF-CARE Instructions: Acetaminophen, Low Back Pain ([facility]), Muscle Relaxers ([facility]), Muscle Strain ([facility]), Warm Packs ([facility]) Additional Instructions: warm compress See the orthopedic doctor on Thursday in [place] as recommended Absolutely no work or lifting Return to the emergency room if worse Forms: Return to Work
[2017-11-30] MEDS ORDERED: OXYCODONE-ACETAMINOPHEN 5-325 MG TABLET PO ONE (14:15)
[2017-11-30] MEDS ORDERED: ONDANSETRON 4 MG TAB.RAPDIS PO ONE (14:15)
[2017-11-30 14:47] VITALS: BP 193/99
== END 2017-11-30 14:45 | disposition home or self-care (01) ==
LOC: ER 12:03
DX: S16.1XXA Strain of muscle, fascia and tendon at neck level, initial encounter (principal); X50.0XXA Overexertion from strenuous movement or load, initial encounter; Y93.89 Activity, other specified; Y99.0 Civilian activity done for income or pay; F17.200 Nicotine dependence, unspecified, uncomplicated; I10 Essential (primary) hypertension
CPT/HCPCS: 99283; S0119